=== PATIENT | male | born 1960 | race Caucasian/White ===

== ENCOUNTER 2023-02-04 11:44 | Outpatient (CLI) | payer OTHER, SELFPAY ==
--- NOTE | ~2023-02-04 | CT_ITS ---
EXAMINATION: CT abdomen pelvis wo con DATE: 02/04/2023 13:46 INDICATION: Fever, unspecified. Left lower quadrant abdominal pain. TECHNIQUE: Computed tomography (CT) of the abdomen and pelvis was performed without intravenous contr ast. Automated exposure control and iterative reconstruction technique were employed. The dose-length product was 1340.79 mGy-cm. COMPARISON: None. FINDINGS: The visualized portions of the lung bases demonstrate mild atelectasis. A calcified right l gian nodule and calcified right hilar lymph nodes are consistent with old granulomatous disease. No pl eural effusion. The heart size is normal. No pericardial effusion. There is diffuse hepatic steatosis . The gallbladder, spleen, pancreas, and adrenal glands and are normal. There are cysts in the kidney s measuring up to 2.0 cm on the right. There is mild left hydronephrosis and hydroureter. There is a 3 mm stone in distal left ureter. There are bilateral inguinal hernias containing fat. There is diver ticulosis of the colon without evidence of diverticulitis. There are no dilated loops of bowel. The a ppendix is normal. There are no pathologically enlarged lymph nodes. There is no ascites. There is mi ld thoracic and lumbar spondylosis. IMPRESSION: 1. 3 mm stone in distal left ureter with mild left hydronephrosis and hydroureter. Reviewed, dictated and finalized at location A. IMPRESSION: 1. 3 mm stone in distal left ureter with mild left hydronephrosis and hydrouret er.
[2023-02-04 12:55] LABS: Estimated Glomerular Filt Rate 27
== END 2023-02-04 11:45 | disposition home or self-care (01) ==
PROVIDERS: PCP Family Medicine; Visit Provider Nurse Practitioner Family
DX: R50.9 Fever, unspecified (principal); N20.1 Calculus of ureter
CPT/HCPCS: 74176

== ENCOUNTER 2023-11-12 00:27 | Day surgery (SDC) | payer MEDICARE, SELFPAY ==
[2023-10-24 15:17] VITALS: BMI 36.3
[2023-11-12 06:34] VITALS: BP 156/99; PULSE 61; RESP 18; TEMP 36.2; O2SAT 96; BMI 36.4
[2023-11-12] MEDS: LACTATED RINGERS 1,000 ML 150 ML IV CONT (06:37)
--- NOTE | 2023-11-12 07:14 | PM.HPGS ---
History of Present Illness History of Present Illness Consent: Risks, benefits, and alternatives have been discussed and questions answered. Patient agrees to proceed with procedure. Chief complaint: hx colon polyps Narrative: Jon Vasquez is a 63 year old male with colon polyp in 2018 Review of Systems Review of Systems: All systems reviewed & are unremarkable except as noted in HPI and below PMFSH Past Medical History Medical History (Updated 11/12/23 @ 07:15 by Rubin Conde MD) Colon polyp Degenerative arthritis of left knee HLD (hyperlipidemia) HTN (hypertension) Obesity Seasonal allergies Urinary frequency Vision loss Surgical History Surgical History History of arthroscopy of left knee History of carpal tunnel release History of surgery stomach/bowl Family History Family History Sibling Diabetes mellitus Hypertension Patient's brother is in good health Father Diabetes mellitus Family history of cardiovascular disease Carcinoma of colon, Onset Age: 79 Family history of coronary artery disease Mother Family history of cardiovascular disease, Onset Age: 82 Other Cerebrovascular accident Family history of arthritis Family history of gout Family history of kidney disease Family history of malignant neoplasm Social History Social History Smoking status: Never smoker Smoking end date: 06/24/97 Alcohol intake: current Drinks per week: 7 Substance use: never Lack of Transportation: No Lack of Food: Never True Current Housing: I Have Housing Concerned About Future Housing: No Difficulty Paying Gas/Electric Bills: No Difficulty Paying for Meds: No Currently Unemployed: No Difficulty w/ Childcare or Family Care: No Living arrangements: with family Occupation/Education: occupation Gender identity (if verbalized by the patient): Male Sexual Orientation (if Verbalized by the Patient): Straight or Heterosexual Spiritual care concerns: No Meds Home Medications and Allergies Home Medications Medication Instructions Recorded Confirmed Type amlodipine 5 mg tablet See Rx Instructions .Route 10/28/23 11/12/23 Rx .COMPLEX #90 tabs losartan 100 See Rx Instructions .Route 10/28/23 11/12/23 Rx mg-hydrochlorothiazide 12.5 mg .COMPLEX #90 tabs tablet meloxicam 15 mg tablet See Rx Instructions .Route 10/28/23 11/12/23 Rx .COMPLEX #90 tabs metoprolol succinate 50 mg See Rx Instructions .Route 10/28/23 11/12/23 Rx tablet,extended release 24 hr .COMPLEX #90 tabs rosuvastatin 5 mg tablet See Rx Instructions .Route 10/28/23 11/12/23 Rx .COMPLEX #90 tabs Allergies Allergy/AdvReac Type Severity Reaction Status Date / Time Penicillins Allergy Unknown Other Verified 11/12/23 06:32 Vital Signs Vital Signs - 24 hr 11/12/23 06:34 Temperature 97.1 F L Pulse Rate 61 Respiratory Rate 18 Blood Pressure 156/99 H Pulse Oximetry 96 Oxygen Delivery Room Air Exam Const: General: comfortable and no acute distress HENMT: Face/Nose/Sinus: Normal nares present Eyes: General: appearance normal, both eyes and all related structures Neck: Neck: no JVD Resp: Auscultation: clear to auscultation bilaterally Cardio: Rate: regular rate Rhythm: regular rhythm GI: Inspection: non-distended GI Palp: Yes Soft to palpation Skin: General skin exam: normal color Neuro: General: gait normal Speech: normal speech Extrem: General: normal to inspection Psych: Mental Status: mental status grossly normal Assessment and Plan Assessment and plan (1) Colon polyp: Code(s): K63.5 - Polyp of colon Status: Acute Assessment and Plan: colonoscopy
--- NOTE | 2023-11-12 07:20 | WPDANESEPPF ---
Anes - Initial Pre Proc Eval Procedure: Operation Date: 11/12/23 07:30 Proposed Procedures p Colonoscopy - Rubin Conde MD Date/Time: 11/12/23 07:20 Surgeon: Rubin Conde MD Pre Op Diagnosis: hx colon polyps Patient Data Age: 63 Gender: M Height: 1.78 m Weight: 115.3 kg Last Vital Signs Temp 97.1 F L 11/12/23 06:34 Pulse 61 11/12/23 06:34 Resp 18 11/12/23 06:34 BP 156/99 H 11/12/23 06:34 Pulse Ox 96 11/12/23 06:34 O2 Del Method Room Air 11/12/23 06:34 Allergies Allergy/AdvReac Type Severity Reaction Status Date / Time Penicillins Allergy Unknown Other Verified 11/12/23 06:32 Home Medications Medication Instructions Recorded Confirmed Type amlodipine 5 mg tablet See Rx Instructions .Route 10/28/23 11/12/23 Rx .COMPLEX #90 tabs losartan 100 See Rx Instructions .Route 10/28/23 11/12/23 Rx mg-hydrochlorothiazide 12.5 mg .COMPLEX #90 tabs tablet meloxicam 15 mg tablet See Rx Instructions .Route 10/28/23 11/12/23 Rx .COMPLEX #90 tabs metoprolol succinate 50 mg See Rx Instructions .Route 10/28/23 11/12/23 Rx tablet,extended release 24 hr .COMPLEX #90 tabs rosuvastatin 5 mg tablet See Rx Instructions .Route 10/28/23 11/12/23 Rx .COMPLEX #90 tabs Patient hx anesthesia problems: none Family hx anesthesia problems: none Results Review: All pre-operative results and documents have been reviewed as part of the pre-operative evaluation. [facility] Past Medical History Medical History (Updated 11/12/23 @ 07:15 by Rubin Conde MD) Colon polyp Degenerative arthritis of left knee HLD (hyperlipidemia) HTN (hypertension) Obesity Seasonal allergies Urinary frequency Vision loss Surgical History Surgical History History of arthroscopy of left knee History of carpal tunnel release History of surgery stomach/bowl Family History Family History Sibling Diabetes mellitus Hypertension Patient's brother is in good health Father Diabetes mellitus Family history of cardiovascular disease Carcinoma of colon, Onset Age: 79 Family history of coronary artery disease Mother Family history of cardiovascular disease, Onset Age: 82 Other Cerebrovascular accident Family history of arthritis Family history of gout Family history of kidney disease Family history of malignant neoplasm Social History Social History Smoking status: Never smoker Smoking end date: 06/24/97 Alcohol intake: current Drinks per week: 7 Substance use: never Lack of Transportation: No Lack of Food: Never True Current Housing: I Have Housing Concerned About Future Housing: No Difficulty Paying Gas/Electric Bills: No Difficulty Paying for Meds: No Currently Unemployed: No Difficulty w/ Childcare or Family Care: No Living arrangements: with family Occupation/Education: occupation Gender identity (if verbalized by the patient): Male Sexual Orientation (if Verbalized by the Patient): Straight or Heterosexual Spiritual care concerns: No Anes - Eval Final PreProcedure Day of Procedure 11/12/23 07:20 Patient weight: obese Heart: regular rate and rhythm Lungs: clear to auscultation Airway: Mallampati scale class II Neurological: alert and oriented Last oral intake: >/= 8 hours ASA classification: III Emergent: no Anesthetic plan: proceed Anesthesia type and monitoring: general GIVS and standard monitoring Results Review: All pre-operative results and documents have been reviewed as part of the pre-operative evaluation. Informed Consent: The patient's anesthetic plan and its attendant risks and benefits were discussed with the patient/family/POA. Questions were solicited and answers provided to the satisfaction of
[2023-11-12 07:41] VITALS: BP 93/54; PULSE 69; RESP 21; O2SAT 97
[2023-11-12 07:51] VITALS: BP 105/62; PULSE 58; RESP 17; O2SAT 96
[2023-11-12 08:01] VITALS: BP 117/70; PULSE 60; RESP 22; O2SAT 96
== END 2023-11-12 08:06 | disposition home or self-care (01) ==
PROVIDERS: PCP Nurse Practitioner Family; Visit Provider Internal Medicine Gastroenterology
PROC: 0DJD8ZZ Inspection of Lower Intestinal Tract, Via Natural or Artificial Opening Endoscopic (ICD-10-PCS; CPT 45378; principal; 2023-11-12 07:30)
DX: Z12.11 Encounter for screening for malignant neoplasm of colon (principal); K57.30 Diverticulosis of large intestine without perforation or abscess without bleeding; K63.5 Polyp of colon; K64.8 Other hemorrhoids; Z86.010 Personal history of colon polyps; I10 Essential (primary) hypertension; E78.5 Hyperlipidemia, unspecified; E66.9 Obesity, unspecified; Z68.36 Body mass index [BMI] 36.0-36.9, adult
CPT/HCPCS: 45380; 88305; J2704; J7120

== ENCOUNTER 2024-07-21 13:51 | Outpatient (CLI) | payer MEDICARE, SELFPAY ==
--- OUTSIDE RECORDS SUMMARY | 2024-07-21 14:33 | XMS_ITS | Clinical Summary ---
Author Organization [facility] Address [address] [place] [address]. 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 Name Role Phone Unavailable Primary Care Provider Unavailabl e Social History Tobacco Use Types Packs/Day Years Used Date Smoking Tobacco: Never Assessed Sex and Gender Information Value Date Recorded Sex Assigned at Not on file Legal Sex Male 7:10 PM CDT Gender Identity Not on file Sexual Orientation Not on file Plan of Treatment Health Maintenance Due Date Last Done Comments Colorectal Cancer Screening Colonoscopy (10 Years) 1960 Hepatitis C 1976 DTaP, Tdap and Td Vaccines ( 1 - Tdap) 1977 Zoster Vaccines (1 of 2) 2008 Pneumococcal Vaccine: 65+ Ye ars (1 of 1 - PCV) 2023 COVID-19 Vaccine (1 - 2023-2 5 season) 2024 Influenza Adult (#1) 2024 RSV Immunization or 60+ Years (1 - 1-dose 75+ series) 2033 Meningococcal B Vaccine Aged Out No l onger eligible based on patient's age to complete this topic Meningococcal Vaccine Aged Out No sophie antonella eligible based on patient's age to complete this topic Pneumococcal Vaccine: Pediat rics (0 to 5 Years) and At-Risk Patients (6 to 64 Years) Aged Out No longer eligible b ased on patient's age to complete this topic RSV Immunizations Under 20 Months Aged Out No longer eligible based on patient's age to complete this topic
--- NOTE | 2024-07-21 14:44 | ECG_ITS ---
Test Date: 2024-07-21 14:57:57 Measurements Intervals [place] Rate: 58 P: 50 NJ: 178 QRS: -13 QRSD: 110 T: 48 QT: 434 QTc: 428 Interpretive Statements SINUS BRADYCARDIA POSSIBLE LEFT VENTRICULAR HYPERTROPHY [VOLTAGE CRITERIA PLUS LAE OR QRS WIDENING] ST DEVIATION AND MODERATE T-WAVE ABNORMALITY, CONSIDER ANTERIOR ISCHEMIA [-0.1+ mV T-WAVE IN V3/V4] No previous ECG available for comparison Electronically Signed On 07-21-2024 16:45:37 WELLNESS CONSULTANT by Liban Staton M.D.
== END 2024-07-21 13:52 | disposition home or self-care (01) ==
LOC: ANHCARD 13:54
PROVIDERS: PCP Nurse Practitioner Family; Visit Provider Nurse Practitioner Family
DX: I10 Essential (primary) hypertension (principal); R00.1 Bradycardia, unspecified
CPT/HCPCS: 93005

== ENCOUNTER 2024-08-19 10:34 | Outpatient (CLI) | payer MEDICARE, SELFPAY ==
--- OUTSIDE RECORDS SUMMARY | 2024-08-19 12:04 | XMS_ITS | Clinical Summary ---
Author Organization [facility] Address [address] [place] [id number] Care Team Providers Care Train Electronic Technician Name Role Phone Unavailable Primary Care Provider [...] this topic Meningococcal Vaccine Aged Out No sopihe antonella eligible based on patient's age to [...]
[2024-08-19 12:13] LABS: Add Urine Microscopic? YES; Appearance Urine Clear (Clear); Bacteria Urine None Seen /hpf; Bilirubin Urine Negative (Negative); Blood Urine Trace (Negative); Color Urine Yellow (Yellow); Glucose Urine UA Negative (Negative); Ketones Urine Negative (Negative); Leukocyte Esterase Ur Negative LEU/UL (Negative); Nitrate Urine Negative (Negative); Non Pathogenic Casts 0-2; Protein Urine Negative (Negative); Prothrombin Time 13.4 Seconds (11.1-14.7); RBC Urine 0-2 /hpf (0-2); Specific Grav Ur 1.019 (1.001-1.035); Squamous Epithelial Cell Urine None Seen /hpf (Few); Urobilinogen Urine 0.2 mg/dL (<2.0); WBC Urine 0-5 /hpf (0-3); pH Urine 5.5 (5.0-9.0)
[2024-08-19 12:14] LABS: Partial Thromboplastin Time 29.5 Seconds (22.3-36.8)
[2024-08-19 12:24] LABS: Urine Cotinine NEGATIVE
[2024-08-19 13:31] LABS: MRSA (PCR) NOT DETECTED (NOT DETECTE)
== END 2024-08-19 10:35 | disposition home or self-care (01) ==
LOC: ANHSURGERY 10:39
PROVIDERS: PCP Nurse Practitioner Family; Visit Provider Orthopaedic Surgery
DX: Z01.818 Encounter for other preprocedural examination (principal); M17.12 Unilateral primary osteoarthritis, left knee
CPT/HCPCS: 80307; 81001; 85610; 85730; 87641

== ENCOUNTER 2024-08-31 07:50 | Outpatient (CLI) | payer MEDICARE, SELFPAY ==
--- NOTE | ~2024-08-31 | NM_ITS ---
EXAMINATION: NM iván stress w perfusion DATE: 08/31/2024 11:29 INDICATION: Abnormal electrocardiogram. TECHNIQUE: Rest images were obtained following intravenous administration of 11.2 mCi Tc99m tetrofosm in (Myoview). The patient was infused intravenously with Lexiscan (regadenoson). Then, 34.6 mCi Tc99m tetrofosmin (Myoview) was administered intravenously, and stress images were obtained. Data was merry nstructed into short axis and horizontal and vertical long axis SPECT images. Gated SPECT images were also obtained. COMPARISON: CT abdomen and pelvis 02/04/2023 FINDINGS: There is no definite reversible or fixed perfusion abnormality to suggest ischemia or infar ction. There is no segmental wall motion abnormality. Left ventricular ejection fraction measures > 70%. IMPRESSION: 1. No definite ischemia or infarct. 2. Normal left ventricular ejection fraction measuring >70%. Reviewed, dictated and finalized at location B.
--- OUTSIDE RECORDS SUMMARY | 2024-08-31 08:01 | XMS_ITS | Clinical Summary ---
Author Organization [facility] Address [address] [place] [address] Care Team Providers Care Optimization Manager Name Role Phone Unavailable Primary Care Provider [...]
--- NOTE | 2024-08-31 08:02 | EST_ITS ---
Patient Info Name: Jon Vasquez Age: 64 years : 1960 Gender: Male Ht: 70 in Wt: 262 lbs BSA: 2.47 m2 HR: 70 bpm BP: 156 / 88 mmHg Exam Date: 08/31/2024 8:48 AM Exam Location: Echo Lab Patient Status: Outpatient Admit Date: 08/31/2024 Staff Ordering Physician: Mignon Nieves Attending Provider: Mignon Nieves Exercise Technologist: Skylar Rider RDCS Exercise Physician: Ken Bah DO Exam Type: CA stress iván w NM Study Info A regadenoson stress test was performed. Summary 1. 1. Negative lexiscan stress test for ischemic ST changes by ECG criteria. 2. 2. Baseline hypertension. 3. 3. Nuclear scan to follow and will be reported separately. Please correlate with it. 4. 4. Patient informed of the above results. Protocol: Lexiscan Stress ECG Details Stage: REST Duration (min): 0 min : 58 sec HR (bpm): 74 SBP (mmHg): 156 DBP (mmHg): 88 Stage: REST Duration (min): 3 min : 29 sec HR (bpm): 76 SBP (mmHg): 156 DBP (mmHg): 88 Stage: STAGE 1 Duration (min): 1 min : 0 sec HR (bpm): 101 SBP (mmHg): 175 DBP (mmHg): 76 Stage: RECOVERY Duration (min): 1 min : 0 sec HR (bpm): 98 SBP (mmHg): 175 DBP (mmHg): 76 Stage: RECOVERY Duration (min): 2 min : 0 sec HR (bpm): 91 SBP (mmHg): 175 DBP (mmHg): 76 Stage: RECOVERY Duration (min): 3 min : 0 sec HR (bpm): 89 SBP (mmHg): 156 DBP (mmHg): 78 Stage: RECOVERY Duration (min): 3 min : 13 sec HR (bpm): 87 SBP (mmHg): 156 DBP (mmHg): 78 Rest HR: 76 bpm Peak HR: 101 bpm Rest Sys BP: 156 mmHg Peak Sys BP: 175 mmHg Max Pred HR: 154 bpm % Max Pred HR: 66 % Target HR: 131 bpm Max RPP: 17,675 bpm*mmHg Termination Reason: Completed protocol Cardiac Symptoms: None Total Time: 1 min : 0 sec Rest Lacy BP: 88 mmHg Peak Lacy BP: 76 mmHg Total Dose: 0.4 mg Resting ECG Sinus rhythm. Stress ECG No ST changes. Arrhythmias None. Report Signatures
== END 2024-08-31 07:51 | disposition home or self-care (01) ==
PROVIDERS: PCP Nurse Practitioner Family; Visit Provider Nurse Practitioner Family
DX: Z01.810 Encounter for preprocedural cardiovascular examination (principal); I10 Essential (primary) hypertension; E78.2 Mixed hyperlipidemia
CPT/HCPCS: 78452; 93017; A9502; J2785

== ENCOUNTER 2024-09-02 00:30 | Day surgery (SDC) | payer MEDICARE, SELFPAY ==
[2024-08-19 10:47] VITALS: BP 117/69; PULSE 55; RESP 16; TEMP 37.2; O2SAT 99; BMI 36.7
--- NOTE | 2024-08-19 11:09 | PC.NURSE ---
Addendum entered by Gi Singh RN 08/19/24 11:18: PT aware that Anesthesia reviewed his PREOP EKG and recommend Stress test prior to surgery, pt will call PCP on way home today to get that set up toño and understands its importance ANALY Original Note: Report to the Outpatient Waiting Room, entrance under the green pavilion located off [facility], at time __0830am on date __09/02/24 . Planned Procedure Time: __1030am .? Time changes happen often and if your time is changed the preop area will call you the afternoon before. - You and your visitor will be asked to self-screen and do not enter if you have any COVID symptoms. Please call surgeon if you need to reschedule. - A mask is optional within the hospital at this time. Patients may have clear liquids (water, carbonated beverages, clear teas, apple juice) until 3 hours prior to surgery with a maximum of 20 ounces. - No food from midnight until time of surgery and no smoking, or chewing tobacco (or any form of nicotine). No chewing gum, candy or mints. (0730) Take only the following medications with a SIP of water on the morning of surgery: ____None DO NOT STOP ANY OF YOUR OTHER PRESCRIPTION MEDICATIONS PRIOR TO SURGERY EXCEPT THE FOLLOWING Hold all vitamins and supplements for 3 days per anesthesiologist. Medications to discontinue per physician Meloxicam for [address] Benton Date to take last dose 08/24/24 Please no make-up, nail portuguese, hairspray, perfume, deodorant, or body powder the day of surgery.? No jewelry (including any body piercings) or valuables the day of surgery, leave them at home.? Please take a shower or bath the night before, or the morning of, surgery with an antibacterial soap & HIBICLEANSE as directed. ? Wear comfortable, loose fitting clothing. - Jewelry must be removed prior to entering the operating room.? Rings and piercings that are not removed may be cut off. - The hospital will not accept responsibility for valuables.? - Please leave all valuables, including medications, at home the day of surgery. If you are going home after surgery, a licensed warehouse driver must drive you home.? - NO public transportation without another adult if you receive anesthesia. - We recommend that an adult stay with you for 24 hours following discharge. - We also recommend that you do not drive, make important decision, drink alcoholic beverages, or take any drugs that were not prescribed by your health care provider for at least 24 hours after your discharge time. Follow any additional instructions given to you from your surgeon. Telephone instructions given to __Patient and asked if any additional questions and then verbalized understanding. Patient advised to call surgeon office or pre surgery nurse liaison [phone] if any additional questions.
[2024-09-02] VITALS (14 sets, daily range): BP systolic 124–161; BP diastolic 61–85; PULSE 68–99; RESP 14–18; TEMP 36.1–36.9; O2SAT 92–100
--- NOTE | ~2024-09-02 | XR_ITS ---
EXAMINATION: [id number] DATE: 09/02/2024 13:07 INDICATION: Left knee arthroplasty. Postop. TECHNIQUE: 2 views of left knee were obtained. COMPARISON: Left knee radiographs 07/21/2024 FINDINGS: There is a total left knee arthroplasty in near-anatomic alignment without patellar resurfa cing. No fracture. Patellar osteophytes have been resected. There is gas in the knee joint and soft t issues, consistent with recent surgery. IMPRESSION: 1. Total left knee arthroplasty in near-anatomic alignment. Reviewed, dictated and finalized at location B.
--- OUTSIDE RECORDS SUMMARY | 2024-09-02 00:33 | XMS_ITS | Clinical Summary ---
Author Organization [facility] Address [address] [place] [id number] Care Team Providers Care Associate Music Professor Name Role Phone Unavailable Primary Care Provider [...]
--- NOTE | 2024-09-02 07:23 | WPDHPUPDATE1 ---
History and Physical Update Update Date/Time: 09/02/24 07:23 History and Physical has been reviewed, including an updated exam of the patient. There are NO changes in the patient's condition. Risks, benefits, and alternatives have been discussed and questions answered. Patient agrees to proceed with procedure.
[2024-09-02] MEDS: ACETAMINOPHEN 500 MG TABLET 1000 MG PO (08:50)
[2024-09-02] MEDS: LACTATED RINGERS 1,000 ML 30 ML IV CONT ×2 (08:55→12:47)
[2024-09-02] MEDS: TRANEXAMIC ACID 1,000MG/ISO100 1,000 MG/100 ML BAG 200 MG IVPB (08:55)
--- NOTE | 2024-09-02 09:32 | WPDANESEPPF ---
Anes - Initial Pre Proc Eval Procedure: Operation Date: 09/02/24 10:30 Proposed Procedures p Left Total Knee Arthroplasty - Frantz Benton MD Date/Time: 09/02/24 09:32 Surgeon: Frantz Benton MD Pre Op Diagnosis: Left Knee O A Patient Data Age: 64 Gender: M Height: 1.79 m Weight: 114.2 kg Last Vital Signs Temp 36.2 C L 09/02/24 08:30 Pulse 68 09/02/24 08:30 Resp 16 09/02/24 08:30 BP 139/83 09/02/24 08:30 Pulse Ox 98 09/02/24 08:30 O2 Del Method Room Air 09/02/24 08:30 Allergies Allergy/AdvReac Type Severity Reaction Status Date / Time Penicillins Allergy Unknown Other Verified 09/02/24 09:17 Home Medications ?Medication ?Instructions ?Recorded ?Confirmed ?Type amlodipine 5 mg tablet See Rx Instructions .Route 07/28/24 09/02/24 Rx .COMPLEX #90 tabs losartan 100 See Rx Instructions .Route 07/28/24 09/02/24 Rx mg-hydrochlorothiazide 12.5 mg .COMPLEX #90 tabs tablet meloxicam 15 mg tablet See Rx Instructions .Route 07/28/24 09/02/24 Rx .COMPLEX #90 tabs metoprolol succinate 50 mg See Rx Instructions .Route 07/28/24 09/02/24 Rx tablet,extended release 24 hr .COMPLEX #90 tabs rosuvastatin 5 mg tablet See Rx Instructions .Route 07/28/24 09/02/24 Rx .COMPLEX #90 tabs Laboratory Tests 09/02/24 08:44 Blood Type Pending Antibody Screen Pending Patient hx anesthesia problems: none Family hx anesthesia problems: none Results Review: All pre-operative results and documents have been reviewed as part of the pre-operative evaluation. [facility] Past Medical History Medical History Degenerative joint disease of left elbow Numbness and tingling of left hand Left elbow pain Right knee DJD Colon polyp Seasonal allergies Degenerative arthritis of left knee Urinary frequency HTN (hypertension) HLD (hyperlipidemia) Obesity Vision loss Surgical History Surgical History History of surgery stomach/bowl History of carpal tunnel release History of arthroscopy of left knee Family History Family History Sibling Diabetes mellitus Hypertension Patient's brother is in good health Father Diabetes mellitus Family history of cardiovascular disease Carcinoma of colon, Onset Age: 79 Family history of coronary artery disease Mother Family history of cardiovascular disease, Onset Age: 82 Other Cerebrovascular accident Family history of arthritis Family history of gout Family history of kidney disease Family history of malignant neoplasm Social History Social History Social History: 07/05/24 very confident with medical forms Smoking status: Never smoker Tobacco type: smokeless tobacco Smokeless tobacco user: chewing tobacco Smoking end date: 06/24/89 Additional smoking assessment comments: Denies nicotine since 1989 chewing tobacco Alcohol intake: current Drinks per week: 7 Alcohol use details: usually one per night but none since Surg date set Substance use: never Do You Feel Safe in your Home?: Yes Lack of Transportation: No Lack of Food: Never True Current Housing: I Have Housing Concerned About Future Housing: No Difficulty Paying Gas/Electric Bills: No Difficulty Paying for Meds: No Currently Unemployed: No Education: Associate Degree Difficulty w/ Childcare or Family Care: No Living arrangements: with family Additional living arrangements comments: Occupation/Education: occupation Gender identity (if verbalized by the patient): Male Sexual Orientation (if Verbalized by the Patient): Straight or Heterosexual Spiritual care concerns: No Anes - Eval Final PreProcedure Day of Procedure 09/02/24 09:32 Patient weight: obese Heart: regular rate and rhythm Lungs: clear to auscultation Airway: Mallampati scale class II Neurological: alert and oriented Last oral intake: >/= 8 hours ASA classification: III Emergent: no Anesthetic plan: proceed Anesthesia type and monitoring: general GIVS and standard monitoring Results Review: All pre-operative results and documents have been reviewed as part of the pre-operative evaluation. Informed Consent: The patient's anesthetic plan and its attendant risks and benefits were discussed with the patient/family/POA. Questions were solicited and answers provided to the satisfaction of the patient/family/POA.
[2024-09-02] MEDS: ceFAZolin 2 GM/D5W 50 ML 2 GM/50 ML BAG IVPB ×2 (10:09→17:01)
[2024-09-02] MEDS: SODIUM CHLORIDE 0.9% IV 37.7 ML, MORPHINE SULFATE INJ (*CRX) 2 MG, ROPivacaine HCL 1% 2... INFILTRATE (10:39)
[2024-09-02] MEDS: TRANEXAMIC ACID 1,000 MG/10 ML AMPUL 1000 MG IV PUSH (11:43)
--- NOTE | 2024-09-02 12:29 | P.OP_ITS ---
Procedure Note - Detailed Date of Procedure 09/02/24 Pre-op Diagnosis Left Knee O A Post-op Diagnosis Same Procedure Performed L TKA Surgeon Frantz Benton MD Anesthesia General Description of Procedure THE LEFT KNEE WAS PREPPED AND DRAPED IN THE STERILE FASHION. THERE WAS A 10 DEGREE FLEXION CONTRACTURE. A MIDLINE SKIN INCISION WAS MADE. A MEDIAL PARAPATELLAR ARTHROTOMY WAS MADE. THE PATELLA WAS EVERTED. THERE WAS TRICOMPARTMENT DJD. THERE WAS MINIMAL PATELLA DJD. AN INTRAMEDULLARY JONO WAS PLACED IN THE FEMUR. A DISTAL FEMORAL CUT WAS MADE IN 5 DEGREES OF VALGUS REMOVING APPROXIMATELY 8 MM OF BONE FROM THE DISTAL FEMUR. THE FEMUR WAS SIZED TO 5. A 5 FEMORAL CUTTING BLOCK WAS PLACED IN 3 DEGREES OF EXTERNAL ROTATION AND IN ALIGNMENT WITH BRETT'S LINE AND THE TRANSEPICONDYLAR AXIS. ANTERIOR POSTERIOR AND CHAMFER CUTS WERE MADE. THE CUTS WERE EXCELLENT. NEXT AN INTRAMEDULLARY CUTTING GUIDE WAS PLACED IN THE TIBIA. A TRANS TIBIAL CUT WAS MADE ALONG THE LONG AXIS OF THE TIBIA. APPROXIMATELY 8 MM OF BONE WAS REMOVED FROM THE HIGH SIDE OF THE TIBIA. THE TIBIA WAS THEN PLANED TO A SMOOTH SURFACE. POSTERIOR FEMORAL OSTEOPHYTES WERE REMOVED FROM THE FEMORAL CONDYLES. A 5 TIBIAL TRIAL WAS PLACED IN ALIGNMENT WITH THE 1/3 MEDIAL ASPECT OF THE TIBIAL TUBERCLE. THEN A 5 FEMORAL TRIAL COMPONENT WAS PLACED. BOTH HAD EXCELLENT FITS. EVENTUALLY AN 1 MM CS POLYETHYLENE TRIAL COMPONENT WAS PLACED. THE KNEE WAS TAKEN THROUGH A RANGE OF MOTION. THE KNEE CAME OUT TO FULL EXTENSION. THE RE WAS NO ABNORMAL TILT TO THE PATELLA. THERE WAS GOOD A/P AND VARUS/VALGUS STABILITY. THERE WAS NO EXCESSIVE ROLL BACK WITH FLEXION. THE TRIAL COMPONENTS WERE REMOVED. THEN A DENISE 5 FEMORAL COMPONENT AND 5 TIBIAL COMPONENT WITH AN 11 CS POLYETHYLENE COMPONENT WERE PRESS FIT INTO PLACE. THE KNEE WAS TAKEN THROUGH A ROM AGAIN AND FOUND TO BE STABLE WITH NO PATELLA TILT NO EXCESSIVE ROLL BACK WITH FLEXION AND GOOD STABILITY WITH COMPLETE AND FULL EXTENSION. THE KNEE WAS IRRIGATED WITH STERILE BETADINE AND WATER FOR ABOUT 3 MINUTES. THE BLEEDERS WERE CAUTERIZED. THE ARTHROTOMY WAS REPAIRED WITH NUMBER 1 VICRYL AND 2 STRATAFIX. THE SUB CUTANEOUS LAYER WITH 2-0 VICRYL AND THE SKIN WITH 3-0 STRATAFIX AND DERMABOND. THE WOUND WAS WASHED AND A STERILE DRESSING WAS APPLIED. PATIENT WAS EXTUBATED. Estimated Blood Loss -150.0 Pathology None sent Complications No immediate complications Condition Stable Disposition PACU
[2024-09-02] MEDS: fentaNYL CITRATE INJ (*CRX) 100 MCG/2 ML VIAL 25 MCG IV PUSH ×4 (13:03→13:27)
--- NOTE | 2024-09-02 14:06 | ADMGEN ---
This patient, Jon Vasquez, was admitted to 3 [facility] Surg Room 325-01. Patient/family oriented to hospital policies and general routines including ID bracelet, bed and alarms, visiting hours, pain management, procedures, bathroom and other care routines, personal items, smoking policy, room service/diet, and visiting hours. Information on how to activate the Rapid Response Team has been discussed. Patient/Family are encouraged to report perceived risks to care and to ask questions if they do not understand what they are told or what they should do.
[2024-09-02] MEDS: IBUPROFEN IV 800 MG/200 ML 800 MG/200 ML BAG 400 MG IVPB (14:38)
[2024-09-02] MEDS: SENNA/DOCUSATE SODIUM TABLET 2 TAB PO (16:55)
[2024-09-02] MEDS: KETOROLAC 15 MG/ML VIAL (*BKC) IV PUSH ×2 (17:00→23:06)
[2024-09-02] MEDS: ROSUVASTATIN 5 MG TABLET BY MOUTH (20:07)
[2024-09-02] MEDS: ASPIRIN 325 MG ENTERIC TABLET PO (20:07)
[2024-09-02] MEDS: FAMOTIDINE 20 MG TABLET PO (20:07)
[2024-09-02] MEDS: METOPROLOL SUCCINATE EXT REL 50 MG TABCR BY MOUTH (20:08)
[2024-09-02] MEDS: amLODIPine BESYLATE 5 MG TABLET BY MOUTH (20:09)
[2024-09-03] MEDS: ceFAZolin 2 GM/D5W 50 ML 2 GM/50 ML BAG IVPB ×2 (01:44→09:47)
[2024-09-03 03:38] VITALS: BP 123/74; PULSE 71; RESP 16; TEMP 36.7; O2SAT 95
[2024-09-03] MEDS: KETOROLAC 15 MG/ML VIAL (*BKC) IV PUSH ×2 (06:05→11:35)
[2024-09-03 06:26] LABS: Basophils Percent Auto 0.2 % (0.2-1.2); Hematocrit 34.8 % (42.0-52.0); Hemoglobin 11.6 g/dL (14.0-18.0); Immature Granulocyte Absolute 0.05 K/mm3 (0.00-0.031); Immature Granulocyte Percent A 0.5 % (0-0.5); Lymphocytes Absolute Auto 1.46 K/mm3 (0.9-3.2); Lymphocytes Percent Auto 14.9 % (18.3-44.2); Mean Corpuscular HGB Conc 33.3 g/dl (32-36); Mean Corpuscular Hemoglobin 30.9 pg (26-34); Mean Corpuscular Volume 92.6 fl (80-100); Mean Platelet Volume 10.2 fl (7.4-10.4); Monocytes Percent Auto 10.2 % (2.6-8.5); Neutrophils Absolute Auto 7.2 K/mm3 (1.3-6.7); Neutrophils Percent Auto 74.2 % (45.5-73.1); Platelet Count Result 171 k/mm3 (150-375); Red Blood Count 3.76 M/mm3 (4.6-6.20); Red Cell Distribution Width 13.6 % (11.5-14.5); White Blood Count 9.8 K/mm3 (4.5-10.0)
[2024-09-03 06:44] LABS: Anion Gap 7 mmol/L (4-12); Blood Urea Nitrogen 23 mg/dL (9-20); Calcium 8.9 mg/dL (8.4-10.2); Carbon Dioxide 26 mmol/L (22-30); Chloride 102 mmol/L (98-107); Estimated CRCL calculation 71 ml/min; Estimated Glomerular Filt Rate > 60; Glucose 136 mg/dL (65-110); Sodium 135 mmol/L (137-145)
--- NOTE | 2024-09-03 09:28 | P.PNOP_ITS ---
Progress Note: A&P Assessment and Plan (1) S/P total knee arthroplasty: Qualifiers: Laterality: left Qualified Code(s): Z96.652 - Presence of left artificial knee joint Code(s): Z96.659 - Presence of unspecified artificial knee joint Status: Acute Assessment and Plan: POD #1: Left TKA Continue PT/OT. WBAT. Walker. HIGH FALL RISK. Continue pain control. Ice Knee. Protect skin. DVT prophylaxis with Aspirin. SCDs. Incentive Spirometry Use reviewed. Monitor Dressing. Change prior to discharge. Bowel Regimen. Dispo: Home with Home Health pending progress with PT/OT Plan Reviewed history, exam, radiographs and current labs with attending MD and covering surgeon, Dr. Benton, who agrees with current plan as indicated above. No further recommendations from Dr. Benton at this time. Subjective Subjective Date/Time Seen: 09/03/24 09:28 Post Op day: 1 Interval history: POD #1: Left TKA Patient doing well. Pain well controlled. No new concerns. Hopeful for d/c home. Review of Systems Review of Systems: All systems reviewed & are unremarkable except as noted in HPI and below Constitutional: Constitutional: Denies fever(s) and Denies headache(s) ENT: Denies headache(s) Cardiovascular: Cardiovascular: Denies chest pain, Denies diaphoresis, Denies palpitations and Denies dyspnea Respiratory: Respiratory: Denies dyspnea Gastrointestinal: Gastrointestinal: Denies abdominal pain, Denies constipation, Denies nausea and Denies vomiting Genitourinary: Genitourinary: Denies dysuria and Reports nocturia Musculoskeletal: Musculoskeletal: Reports arthralgias (Right Knee ) and Reports joint swelling (Right Knee ) Neurologic: Denies headache(s) Endocrine: Endocrine: Denies palpitations Exam Const: General: comfortable and no acute distress Resp: Effort & Inspection: normal respiratory effort Cardio: Rate: regular rate Rhythm: regular rhythm GI: GI Palp: Yes Soft to palpation, No Tenderness to palpation present (GI) and No Guarding due to palpation present (GI) Skin: General skin exam: wounds noted Wounds: wounds noted Other: Incision c/d/i. No surrounding redness/warmth. No hematoma. Mild ecchymosis. No wound dehiscence Neuro: Cognition (Neuro): normal cognition Other: NV intact aside from block. Moves toes. Sensation intact to light touch. +ankle dorsiflexion/plantarflexion. Extrem: Right lower extremity: normal to inspection, knee Details: tenderness (diffuse, mild ) Location: of the patella, swelling (diffuse, consistent with surgical intervention ), abnormal ROM Details: pain with active ROM during, pain with passive ROM during and with range as follows (limited due to recent surgical intervention ); able to extend lower leg actively and ecchymosis (mild ), lower leg (Negative Boy's Sign ) Details: normal to inspection; no erythema and no tenderness, ankle (+ankle dorsiflexion/plantarflexion ) Details: normal to inspection, no edema and normal ROM; no tenderness, no swelling and no ecchymosis and foot Details: normal capillary refill, normal to inspection, vascular exam Details: dorsalis pedis pulse present and motor-sensory exam Details: light-touch normal; no tenderness Left lower extremity: normal to inspection Psych: Mental Status: mental status grossly normal Objective Data Vital Signs Vital Signs: Vital Signs - 24 hr 09/02/24 12:47 09/02/24 13:00 09/02/24 13:15 Temperature 36.1 C L Pulse Rate 93 90 89 Respiratory Rate 17 14 18 Blood Pressure 157/79 H 155/83 H 161/85 H Pulse Oximetry 95 100 95 Oxygen Delivery Simple Face Mask Simple Face Mask Room Air Oxygen Flow Rate 8 8 09/02/24 13:30 09/02/24 13:50 09/02/24 14:00 Temperature 36.6 C Pulse Rate 89 89 88 Respiratory Rate 14 14 16 Blood Pressure 140/61 147/78 H 152/78 H Pulse Oximetry 94 92 94 Oxygen Delivery Room Air Room Air Oxygen Flow Rate 09/02/24 14:15 09/02/24 14:45 09/02/24 15:00 Temperature 36.8 C 36.9 C Pulse Rate 85 83 Respiratory Rate 18 18 Blood Pressure 155/74 H 148/79 H Pulse Oximetry 95 94 Oxygen Delivery Room Air Oxygen Flow Rate 09/02/24 15:45 09/02/24 19:38 09/02/24 20:08 Temperature 36.4 C L 36.5 C Pulse Rate 99 99 75 Respiratory Rate 18 16 Blood Pressure 124/85 134/79 Pulse Oximetry 95 96 Oxygen Delivery Oxygen Flow Rate 09/02/24 20:10 09/03/24 03:38 09/03/24 08:00 Temperature 36.7 C Pulse Rate 75 71 Respiratory Rate 18 16 Blood Pressure 123/74 Pulse Oximetry 95 95 Oxygen Delivery Room Air Room Air Oxygen Flow Rate Intake/Output Intake/Output: Intake & Output 08/31/24 09/01/24 09/02/24 09/03/24 23:59 23:59 23:59 23:59 Intake Total 1490 390 Balance 1490 390 Meds/Results Medications: Active Medications Generic Name Dose Route Start Last Admin Trade Name Freq PRN Reason Stop Dose Admin Acetaminophen 500 mg 09/02/24 13:53 Acetaminophen 500 Mg Tablet PO Q6H PRN Pain Rated 1-3 Amlodipine Besylate 5 mg 09/02/24 21:00 09/02/24 20:09 Amlodipine Besylate 5 Mg Tablet BY MOUTH 5 mg HS DARIUSZ Administration Aspirin 325 mg 09/02/24 21:00 09/02/24 20:07 Aspirin 325 Mg Enteric Tablet PO 325 mg Q12HR DARIUSZ Administration Diazepam 5 mg 09/02/24 13:53 Diazepam (*Crx) 5 Mg Tablet PO Q8H PRN Spasms Diphenhydramine HCl 25 mg 09/02/24 13:53 Diphenhydramine Hcl Inj 50 Mg/Ml Vial IV PUSH Q6H PRN Itching Famotidine 20 mg 09/02/24 21:00 09/02/24 20:07 Famotidine 20 Mg Tablet PO 20 mg Q12HR DARIUSZ Administration Hydrochlorothiazide 12.5 mg 09/03/24 09:00 Hydrochlorothiazide 12.5 Mg Capsule PO QAM DARIUSZ Hydromorphone HCl 1 mg 09/02/24 13:53 Hydromorphone Hcl Inj (*Crx) 1 Mg/Ml Syr IV PUSH Q2H PRN Breakthrough Pain Rated 7-10 or NPO Hydromorphone HCl 0.5 mg 09/02/24 13:53 Hydromorphone Hcl Inj (*Crx) 1 Mg/Ml Syr IV PUSH Q2H PRN Breakthrough Pain Rated 4-6 or NPO Cefazolin Sodium 2 gm in 50 mls @ 100 mls/hr 09/02/24 18:00 09/03/24 02:14 Ancef 2 Gm/D5w 50 Ml IVPB 09/03/24 10:29 Infused Q8H [facility] Infusion Ibuprofen 800 mg in 200 mls @ 400 mls/hr 09/02/24 13:53 09/02/24 15:08 Caldolor 800 Mg/200 Ml IVPB Infused Q6H PRN Infusion Breakthrough Pain Rated 1-3 or NPO Ketorolac Tromethamine 15 mg 09/02/24 18:00 09/03/24 06:05 Ketorolac 15 Mg/Ml Vial (*Bkc) IV PUSH 09/03/24 18:01 15 mg Q6HR DARIUSZ Administration Losartan Potassium 100 mg 09/03/24 09:00 Losartan Potassium 100 Mg Tablet PO QAM DARIUSZ Metoprolol Succinate 50 mg 09/02/24 21:00 09/02/24 20:08 Metoprolol Succinate Ext Rel 50 Mg Tabcr BY MOUTH 50 mg HS DARIUSZ Administration Naloxone HCl 0.1 mg 09/02/24 13:53 Naloxone Hcl 0.4 Mg/Ml Vial IV PUSH Q2M PRN Opiate Reversal Ondansetron HCl 4 mg 09/02/24 13:53 Ondansetron Inj 4 Mg/2 Ml Vial IV PUSH Q4H PRN Nausea And Vomiting Oxycodone/Acetaminophen 1 tablet 09/02/24 13:53 Oxycodone/Acetaminophen (*Crx) 5-325 Mg Tablet PO Q4H PRN Pain Rated 4-6 Oxycodone/Acetaminophen 1 tab 09/02/24 13:53 Oxycodone/Acetaminophen (*Crx) 10-325 Mg Tablet PO Q6H PRN Pain Rated 7-10 Polyethylene Glycol 17 gm 09/03/24 09:00 Polyethylene Glycol 3350 17 Gm Powd.Pack PO QAM [facility] Rosuvastatin Calcium 5 mg 09/02/24 21:00 09/02/24 20:07 Rosuvastatin 5 Mg Tablet BY MOUTH 5 mg HS [facility] Administration Senna/Docusate Sodium 2 tab 09/02/24 17:00 09/02/24 16:55 Senna/Docusate Sodium Tablet PO 2 tab BID DARIUSZ Administration Radiology Results: ITS Impressions Knee X-Ray 09/02/24 13:37 IMPRESSION: 1. Total left knee arthroplasty in near-anatomic alignment. Labs Labs: Laboratory Results - last 24 hr 09/02/24 09/03/24 08:44 06:09 WBC 9.8 RBC 3.76 L Hgb 11.6 L Hct 34.8 L MCV 92.6 MCH 30.9 MCHC 33.3 RDW 13.6 Plt Count 171 MPV 10.2 Immature Gran % (Auto) 0.5 Neut % (Auto) 74.2 H Lymph % (Auto) 14.9 L [place] % (Auto) 10.2 H Eos % (Auto) 0.0 Baso % (Auto) 0.2 Lymph # (Auto) 1.46 [place] # (Auto) 1.0 H Eos # (Auto) 0.0 Baso # (Auto) 0.0 Abs Immat Gran (auto) 0.05 H Absolute Neuts (auto) 7.2 H Absolute Nucleated RBC 0.000 Nucleated RBC % 0.0 Sodium 135 L Potassium 4.0 Chloride 102 Carbon Dioxide 26 Anion Gap 7 BUN 23 H Creatinine 1.16 Estim Creat Clear Calc 71 Estimated GFR > 60 Glucose 136 H Calcium 8.9 Blood Type O Positive Antibody Screen Negative Quality VTE Prophylaxis VTE prophylaxis: pharmacologic ordered
[2024-09-03] MEDS: SENNA/DOCUSATE SODIUM TABLET 2 TAB PO (09:46)
[2024-09-03] MEDS: hydroCHLOROthiazide 12.5 MG CAPSULE PO (09:46)
[2024-09-03] MEDS: LOSARTAN POTASSIUM 100 MG TABLET PO (09:46)
[2024-09-03] MEDS: ASPIRIN 325 MG ENTERIC TABLET PO (09:46)
[2024-09-03] MEDS: FAMOTIDINE 20 MG TABLET PO (09:46)
[2024-09-03] MEDS: polyethylene glycoL 3350 17 GM POWD.PACK PO (09:47)
[2024-09-03 14:00] VITALS: BP 138/84; PULSE 87; RESP 20; TEMP 37.3; O2SAT 98
== END 2024-09-03 14:30 | disposition home health service (06) ==
LOC: ANHSURGERY 08:19 → ANH3MEDSUR 09-03 08:40
PROVIDERS: PCP Nurse Practitioner Family; Visit Provider Orthopaedic Surgery
PROC: (CPT 27447; principal; 2024-09-02 10:30)
DX: M17.12 Unilateral primary osteoarthritis, left knee (principal); M25.762 Osteophyte, left knee; E78.5 Hyperlipidemia, unspecified; I10 Essential (primary) hypertension; R35.0 Frequency of micturition; M19.122 Post-traumatic osteoarthritis, left elbow; F17.220 Nicotine dependence, chewing tobacco, uncomplicated; E66.9 Obesity, unspecified; Z68.35 Body mass index [BMI] 35.0-35.9, adult; Z98.890 Other specified postprocedural states; Z86.0100 Personal history of colon polyps, unspecified; Z80.0 Family history of malignant neoplasm of digestive organs; Z82.49 Family history of ischemic heart disease and other diseases of the circulatory system
CPT/HCPCS: 27447; 36415; 73560; 80048; 85025; 86850; 86900; 86901; 97110; 97116; 97161; 97165; 97530; 97535; A9270; C1713; C1776; J0171; J0690; J1100; J1171; J1741; J1885; J2003; J2250; J2270; J2405; J2704; J2795; J3010; J3370; J7120

== ENCOUNTER 2024-11-03 14:00 | Outpatient (RCR) | payer MEDICARE, SELFPAY ==
--- NOTE | 2024-09-30 13:10 | PTOPEVAL1 ---
Assessment and note entered by Irma Rousseau, PT Evaluation Information Assessment Status Evaluation Diagnosis Z96.652 Presence of artifical left knee ICD-10 Condition Codes (PT) Pain in left knee M25.562,Abnormalities of gait and mobility R26.9,Weakness R53.1,Encounter for other orthopedic aftercare Z47.89 Onset 09/02/24 Subjective Information Has a little pain in the inside of the knee. Pt reports is able to olive picker his walker and walk. States is forgetting to take it with him sometimes. Pt has 3 steps into home, outside of house is 4 single steps (not continuous). Has 18 steps with hand rail x 1 on Left ascending, grab bars in garage on left, high rise toilet. Doesn't require stool in the shower any more Reports having propped extension, seated heel slides, supine heel slides, straight leg raises, bicycle 5x daily Pain is controlled with tylenol multiple times a day but not often Pt reports open area of knee smelled when it came open. This area has since been noted by physician, instructions given for topical application and no dressing to be applied. Reported Pain Level Pain Score 1: Self Report Assessment PT Clinical Summary Pt presents four weeks post TKA LLE. He reports low levels of pain that is well controlled with over the counter medications, demonstrates very good ambulation with minimal gait deficits even without AD. He shows appropriate ROM and strength for this phase of recovery. Pt does demonstrate extensor lag with straight leg raise, decreased quads strength, mild gait abnormality, decreased ROM and swelling for maximal recovery. He also has continued eschar along incision, an open wound medial incision just below joint line with reports of continued drainage. He reports he has been examined and educated on care of incisional healing by his surgeon. Thus patient will benefit from physical therapy in order to address deficits , monitor healing, and return to maximal independent function. Plan of Care Interventions Electrical Stimulation,Gait Training,Hot Pack/Cold Pack,Manual Therapy,Neuro Re-education,Patient/ Caregiver Education,Therapeutic Activities, Therapeutic Exercise,Self-Care/Home Management, Other Other Interventions Taping PT Services Indicated Yes Treatment Frequency and 2x weekly x 20 visits Duration These treatments will address the objective and functional deficits as defined above. The patient will be advanced safely and appropriately in order for the patient to progress towards his/her prior level of function. Additional exercises will be introduced and as well as a comprehensive home exercise program upon discharge, if needed, ?to ensure carryover of functional gains achieved in the clinic. This treatment plan has been reviewed and agreement upon by the patient.
--- NOTE | 2024-09-30 13:10 | OPREHPOC ---
Outpatient Therapy Plan of Care This is a Multidisciplinary Plan of Care that may contain components documented by all disciplines (PT, OT, and ST.) PT Goal 1 Goal / Goal Update Pt will be independent in HEP Pt will verbalize understanding of diagnosis and prognosis Target Visit 10 PT Problem 2 PT Problem #2 Impaired Gait PT Goal 1 Goal / Goal Update Pt will demonstrate normalized gait without AD or overt deficits Target Visit 10 PT Goal 2 Goal / Goal Update Pt will demonstrate ability to ascend and descend 18 steps with L rail ascending in a reciprocal pattern without deficits Target Visit 20 PT Problem 3 PT Problem #3 Impaired Range of Motion PT Goal 1 Goal / Goal Update Pt will demonstrate passive ROM 0-120 for improved mobility Target Visit 10 PT Goal 2 Goal / Goal Update Pt will demonstrate active ROM of 0-125 for appropriate mobility to navigate varying terrain Target Visit 20 PT Problem 4 PT Problem #4 Impaired Strength PT Goal 1 Goal / Goal Update Pt will demonstrate 4/5 or greater knee extension and flexion without pain for improved mobility Target Visit 10 PT Goal 2 Goal / Goal Update Pt will demonstrate straight leg raise without extensor lag for appropriate strength and control Target Visit 20
--- NOTE | 2024-12-16 17:47 | PTOPDC ---
Assessment and note entered by Irma Rousseau, PT Evaluation Information Assessment Status Discharge - Pt Not Present Diagnosis Z96.652 Presence of artifical left knee ICD-10 Condition Codes (PT) Pain in left knee M25.562,Abnormalities of gait and mobility R26.9,Weakness R53.1,Encounter for other orthopedic aftercare Z47.89 Onset 09/02/24 Subjective Information 8 weeks 6 days post-op left knee replacement (11/03/24) Reports saw MD a week ago is using a silver cream and a sulfa-antiobiotics 2x daily x 14 days Also drinking protein shake one a day. Has been practice swinging golf clubs Assessment PT Clinical Summary Pt attended therapy consistently post knee replacement. Range, strength, and pain progressed very well. Only concern was continued open wound with continued drainage. However functionally patient has done very well, and has not required continuation of therapy in multiple weeks. Thus he is being discharged from this plan of care. Plan of Care PT Services Indicated No
== END 2024-12-17 09:16 | disposition home or self-care (01) ==
LOC: ANHHIPT 14:00
PROVIDERS: PCP Nurse Practitioner Family; Visit Provider Orthopaedic Surgery
DX: Z47.1 Aftercare following joint replacement surgery (principal); Z96.652 Presence of left artificial knee joint
CPT/HCPCS: 97014; 97110; 97162; 97530; 97750; G0283

== ENCOUNTER 2024-11-24 08:29 | Outpatient (CLI) | payer MEDICARE, SELFPAY ==
--- NOTE | 2024-11-24 11:00 | NEURO_ITS ---
Impression: # Complains of numbness of left hand. Not diabetic. ? 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 ? # Left Carpal Tunnel Syndrome. ? # Mildly abnormal Needle/EMG exam. Nerve Conduction Studies Anti Sensory Summary Table ?Stim Site NR Peak (ms) P-T Amp (?V) Site1 Site2 Delta-P (ms) Dist (cm) Lamont (m/s) Left Median Anti Sensory (2-3nd Digit) Wrist ? 4.3 18.4 Wrist 2-3nd Digit 4.3 14.0 33 Wrist ? 4.3 16.8 Wrist 2-3nd Digit 4.3 14.0 33 Left Radial Anti Sensory (Base 1st Digit) Wrist ? 2.5 19.6 Wrist Base 1st Digit 2.5 0.0 Left Ulnar Anti Sensory (5th Digit) Wrist ? 2.9 24.0 Wrist 5th Digit 2.9 14.0 48 Motor Summary Table ?Stim Site NR Onset (ms) O-P Amp (mV) Site1 Site2 Delta-0 (ms) Dist (cm) Lamont (m/s) Left Median Motor (Abd Poll Brev) Wrist ? 4.9 0.7 Elbow Wrist 6.0 29.0 48 Elbow ? 10.9 1.5 Left Ulnar Motor (Abd Dig Minimi) Wrist ? 3.7 2.8 A Elbow Wrist 10.1 31.0 31 A Elbow ? 13.8 1.4 B Elbow Wrist 6.1 22.0 36 B Elbow ? 9.8 1.2 F Wave Studies ?NR F-Lat (ms) L-R F-Lat (ms) Left Median (Mrkrs) (Abd Poll Brev) ? 28.48 Left Ulnar (Mrkrs) (Abd Dig Min) ? 29.47 EMG ?Side Muscle Nerve Root Ins Act Fibs Amp Dur Recrt Comment Left 1stDorInt Ulnar C8-T1 Nml Nml Nml Nml Nml Left Ext Indicis Radial (Post Int) C7-8 Nml Nml Nml Nml Nml Left Ext Digitorum Radial (Post Int) C7-8 Nml Nml Nml Nml Nml Left BrachioRad Radial C5-6 Nml Nml Nml Nml Nml Left PronatorTeres Median C6-7 Nml Nml Nml Nml Nml Left Abd Poll Brev Median C8-T1 Nml Nml Nml Nml Nml Left ABD Dig Min Ulnar C8-T1 Nml Nml Nml >12ms +1 Left FlexPolLong Median (Ant Int) C7-8 Nml Nml Nml Nml Nml Left Abd Poll Long Radial (Post Int) C7-8 Nml Nml Nml >12ms +1
== END 2024-11-24 08:30 | disposition home or self-care (01) ==
PROVIDERS: PCP Nurse Practitioner Family; Visit Provider Nurse Practitioner Family
DX: R20.0 Anesthesia of skin (principal); R20.2 Paresthesia of skin; G56.02 Carpal tunnel syndrome, left upper limb; G56.22 Lesion of ulnar nerve, left upper limb
CPT/HCPCS: 95886; 95909

== ENCOUNTER 2025-01-06 08:36 | Outpatient (RCR) | payer MEDICARE, SELFPAY ==
[2025-01-06 09:00] VITALS: BMI 35.9
== END 2025-02-15 10:41 | disposition home or self-care (01) ==
LOC: ANHWOC 08:36
PROVIDERS: PCP Nurse Practitioner Family; Visit Provider Nurse Practitioner Family
DX: S81.802D Unspecified open wound, left lower leg, subsequent encounter (principal)
CPT/HCPCS: 99214; G0463

== ENCOUNTER 2025-05-07 07:53 | Outpatient (CLI) | payer MEDICARE, SELFPAY ==
--- OUTSIDE RECORDS SUMMARY | 2025-05-07 08:00 | XMS_ITS | Clinical Summary ---
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 Phone Unavailable Primary Care Provider [...] Td Vaccines ( 1 - Tdap) 1977 Pneumococcal Vaccine: 50+ Ye ars (1 of 1 - PCV) 2008 Zoster Vaccines (1 of 2) 2008 COVID-19 Vaccine (1 - 2024-2 6 season) 2025 Influenza Adult (#1) 2025 RSV Immunization or 60+ Years (1 - 1-dose 75+ series) 2033 Hepatitis A Vaccines Aged Out No long er eligible based on patient's age to complete this topic Meningococcal B Vaccine Aged Out No l onger eligible based on patient's age to complete this topic Meningococcal Vaccine Aged Out No sophie antonella eligible based on patient's age to complete this topic RSV Immunizations Under 20 Months Aged Out No longer eligible based on patient's age to complete this topic
[2025-05-07 09:42] LABS: Anion Gap 8 mmol/L (4-12); Blood Urea Nitrogen 19 mg/dL (9-20); Calcium 9.8 mg/dL (8.4-10.2); Carbon Dioxide 29 mmol/L (22-30); Chloride 102 mmol/L (98-107); Estimated Glomerular Filt Rate 59; Glucose 105 mg/dL (65-110); Potassium 4.0 mmol/L (3.4-5.0); Sodium 139 mmol/L (137-145)
== END 2025-05-07 07:54 | disposition home or self-care (01) ==
LOC: ANHSURGERY 07:56
PROVIDERS: Anesthesiology; PCP Nurse Practitioner Family; Visit Provider Orthopaedic Surgery
DX: Z51.81 Encounter for therapeutic drug level monitoring (principal); Z79.899 Other long term (current) drug therapy; Z01.818 Encounter for other preprocedural examination
CPT/HCPCS: 36415; 80048

== ENCOUNTER 2025-05-18 00:40 | Day surgery (SDC) | payer MEDICARE, SELFPAY ==
[2025-05-06 15:20] VITALS: BMI 22.7
--- NOTE | 2025-05-06 15:39 | PC.NURSE ---
[facility] has started construction of its new state of the art ER which will open Spring 2026. With this, we anticipate parking may be a challenge for some our surgical patients and families. Parking spaces are limited but are available for all Surgical, obstetrics, and ER patients sharing this lot. If you arrive and find you are having a hard time finding a parking space, please note that we understand the challenges, please drive around the hospital and park near Hospital Entrance 1. When you enter this entrance, you can ask a volunteer to direct or take you back to the surgical waiting area to check in. We appreciate everyone?s understanding of these expected challenges while we build for your future. Report to the Outpatient Waiting Room, entrance under the green pavilion located off [address], at time __7:00AM___ on date ___05/18/25___. Planned Procedure Time: __9:00AM____.? Time changes happen often and if your time is changed the preop area will call you the afternoon before. - You and your visitor will be asked to self-screen and do not enter if you have any COVID symptoms. Please call surgeon if you need to reschedule. - A mask is optional within the hospital at this time. Patients may have clear liquids (water, carbonated beverages, clear teas, apple juice) until 3 hours prior to surgery (6:00AM) with a maximum of 20 ounces. - No food from midnight until time of surgery and no smoking, or chewing tobacco (or any form of nicotine). No chewing gum, candy or mints. Take only the following medications with a SIP of water on the morning of surgery: ____NONE DO NOT STOP ANY OF YOUR OTHER PRESCRIPTION MEDICATIONS PRIOR TO SURGERY EXCEPT THE FOLLOWING Hold all vitamins and supplements for 3 days per anesthesiologist. Medications to discontinue per physician __HOLD MELOXICAM PER DR BERMUDEZ Date to take last dose Please no make-up, nail malian, hairspray, perfume, deodorant, or body powder the day of surgery.? No jewelry (including any body piercings) or valuables the day of surgery, leave them at home.? Please take a shower or bath the night before, or the morning of, surgery with an antibacterial soap.? Wear comfortable, loose fitting clothing.? - Jewelry must be removed prior to entering the operating room.? Rings and piercings that are not removed may be cut off. - The hospital will not accept responsibility for valuables.? - Please leave all valuables, including medications, at home the day of surgery. If you are going home after surgery, a licensed milk wagon driver must drive you home.? - NO public transportation without another adult if you receive anesthesia. - We recommend that an adult stay with you for 24 hours following discharge. - We also recommend that you do not drive, make important decision, drink alcoholic beverages, or take any drugs that were not prescribed by your health care provider for at least 24 hours after your discharge time. Follow any additional instructions given to you from your surgeon. Telephone instructions given to ____PATIENT and asked if any additional questions and then verbalized understanding. Patient advised to call surgeon office or pre surgery nurse liaison [phone] if any additional questions.
[2025-05-18] VITALS (7 sets, daily range): BP systolic 133–152; BP diastolic 68–90; PULSE 67–95; RESP 12–18; TEMP 36.3–36.4; O2SAT 95–100
--- OUTSIDE RECORDS SUMMARY | 2025-05-18 00:43 | XMS_ITS | Clinical Summary ---
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
[2025-05-18] MEDS: ACETAMINOPHEN 500 MG TABLET 1000 MG PO (08:50)
[2025-05-18] MEDS: CELECOXIB 200 MG CAPSULE PO (08:50)
[2025-05-18] MEDS: LACTATED RINGERS 1,000 ML 30 ML IV CONT (08:55)
--- NOTE | 2025-05-18 09:26 | WPDHPUPDATE1 ---
History and Physical Update Update Date/Time: 05/18/25 09:26 History and Physical has been reviewed, including an updated exam of the patient. There are NO changes in the patient's condition. Risks, benefits, and alternatives have been discussed and questions answered. Patient agrees to proceed with procedure.
--- NOTE | 2025-05-18 11:15 | P.PNAN_ITS ---
Anes - Initial Pre Proc Eval Procedure: Operation Date: 05/18/25 10:30 Proposed Procedures p Left Cubital Tunnel Release - Frantz Benton MD Date/Time: 05/18/25 11:15 Surgeon: Frantz Benton MD Pre Op Diagnosis: Left Cubital Tunnel /ulnar neuropathy Patient Data Age: 65 Gender: M Height: 1.79 m Weight: 117.9 kg Last Vital Signs Temp 36.4 C 05/18/25 08:40 Pulse 67 05/18/25 08:40 Resp 18 05/18/25 08:40 BP 144/90 H 05/18/25 08:40 Pulse Ox 96 05/18/25 08:40 O2 Del Method Room Air 05/18/25 08:40 Allergies Allergy/AdvReac Type Severity Reaction Status Date / Time Penicillins AdvReac Unknown NAUSEA Verified 05/18/25 09:18 Home Medications ?Medication ?Instructions ?Recorded ?Confirmed ?Type amlodipine 5 mg tablet See Rx Instructions .Route 0 07/28/24 05/18/25 Rx .COMPLEX #90 tabs losartan 100 See Rx Instructions .Route 0 07/28/24 05/18/25 Rx mg-hydrochlorothiazide 12.5 mg .COMPLEX #90 tabs tablet metoprolol succinate 50 mg See Rx Instructions .Route 07/28/24 05/18/25 Rx tablet,extended release 24 hr .COMPLEX #90 tabs rosuvastatin 5 mg tablet See Rx Instructions .Route 0 07/28/24 05/18/25 Rx .COMPLEX #90 tabs meloxicam 15 mg tablet 15 mg PO DAILY 05/06/2504/25 History ECG: SB 58 Patient hx anesthesia problems: none Family hx anesthesia problems: none Results Review: All pre-operative results and documents have been reviewed as part of the pre- operative evaluation. [facility] Past Medical History Medical History Degenerative joint disease of left elbow Numbness and tingling of left hand Left elbow pain Right knee DJD Colon polyp Seasonal allergies Degenerative arthritis of left knee Urinary frequency HTN (hypertension) HLD (hyperlipidemia) Obesity Vision loss Surgical History Surgical History S/P total knee arthroplasty LT TKA 09/02/24- Dr. Benton History of surgery stomach/bowl History of carpal tunnel release History of arthroscopy of left knee Family History Family History Sibling Diabetes mellitus Hypertension Patient's brother is in good health Father Diabetes mellitus Family history of cardiovascular disease Carcinoma of colon, Onset Age: 79 Family history of coronary artery disease Mother Family history of cardiovascular disease, Onset Age: 82 Other Cerebrovascular accident Family history of arthritis Family history of gout Family history of kidney disease Family history of malignant neoplasm Social History Social History Social History: 07/05/24 very confident with medical forms 12/28/24 declined SDOH Smoking status: Never smoker Alcohol intake: current Drinks per week: 2 Alcohol use details: usually one per night but none since Surg date set Substance use: never Substance use type: does not use Do You Feel Safe in your Home?: Yes Lack of Transportation: No Lack of Food: Never True Current Housing: I Have Housing Concerned About Future Housing: No Difficulty Paying Gas/Electric Bills: No Difficulty Paying for Meds: No Currently Unemployed: No Education: Associate Degree Difficulty w/ Childcare or Family Care: No Living arrangements: with family Additional living arrangements comments: Occupation/Education: occupation Gender identity (if verbalized by the patient): Male Sexual Orientation (if Verbalized by the Patient): Straight or Heterosexual Spiritual care concerns: No Comments OPAL/CPAP Anes - Eval Final PreProcedure Day of Procedure 05/18/25 11:15 Patient weight: morbidly obese Heart: regular rate and rhythm Lungs: normal air movement Airway: Mallampati scale class II Neurological: alert and oriented Last oral intake: >/= 8 hours ASA classification: III Emergent: no Anesthetic plan: proceed Anesthesia type and monitoring: general LMA and standard monitoring Results Review: All pre-operative results and documents have been reviewed as part of the pre- operative evaluation. Informed Consent: The patient's anesthetic plan and its attendant risks and benefits were discussed with the patient/family/POA. Questions were solicited and answers provided to the satisfaction of the patient/family/POA.
[2025-05-18] MEDS: ceFAZolin 2 GM in SODIUM CHLORIDE 0.9% IV 50 ML 100 ML IVPB (11:26)
[2025-05-18] MEDS: LIDO 1%/EPINEPHRINE 1:100,000 50 ML VIAL (12:03)
--- NOTE | 2025-05-18 13:02 | W.PM.PROC2 ---
Procedure Note - Detailed Date of Procedure 05/18/25 Pre-op Diagnosis Left Cubital Tunnel /ulnar neuropathy Post-op Diagnosis Same Procedure Performed LEFT CUBITAL TUNNEL RELEASE Surgeon Frantz Benton MD Anesthesia General Indications LEFT CUBITAL TUNNEL SYNDROME Description of Procedure THE PATIENT WAS TAKEN TO THE OPERATING ROOM AND PLACED UNDER GENERAL ANESTHESIA. THE LEFT UPPER EXTREMITY WAS PREPPED AND DRAPED STERILE. AN INCISION WAS MADE OVER AN INCISION FROM A PREVIOUS PROCEDURE ON THE MEDIAL ELBOW IN BETWEEN THE MEDIAL EPICONDYLE AND OLECRANON. DISSECTION CONTINUED TILL THE CUBITAL TUNNEL FASCIA WAS IDENTIFIED. THE ULNAR NERVE WAS PALPATED. AN INCISION WAS MADE THROUGH THE FASCIA UNTIL THE ULNAR NERVE WS IDENTIFIED. THE FASCIA WAS INCISED FROM THE ARCADE OF FROSCH PROXIMALLY TO THE FCU FASCIA DISTALLY. THE NERVE WAS COMPLETELY RELEASED. THE WOUND WAS IRRIGATED. THE BLEEDERS WERE CAUTERIZED. THE SUB CUTANEOUS LAYER WAS APPROXIMATED WITH 2-0. THE SKIN WAS REPAIRED WITH 3-0 QUIL. THE WOUND WAS WASHED, DERMABOND WAS APPLIED. STERILE DRESSING WAS APPLIED. PATIENT WAS EXTUBATED AND SENT TO THE RECOVERY ROOM. Estimated Blood Loss 20 Complications No immediate complications Condition Stable Disposition PACU
== END 2025-05-18 14:22 | disposition home or self-care (01) ==
PROVIDERS: PCP Nurse Practitioner Family; Visit Provider Orthopaedic Surgery
PROC: (CPT 64721; principal; 2025-05-18 10:30)
DX: G56.22 Lesion of ulnar nerve, left upper limb (principal); E66.01 Morbid (severe) obesity due to excess calories; Z68.36 Body mass index [BMI] 36.0-36.9, adult
CPT/HCPCS: 64718; J0690; A9270; J1100; J2003; J2004; J2250; J2405; J2704; J3010; J7120